=== PATIENT | male | born 1940 | race Caucasian/White ===

== ENCOUNTER 2017-05-21 00:05 | Day surgery (SDC) | payer MEDICARE, OTHER ==
[~2017-05-21] VITALS: Ht 180.3 cm; Wt 80.3 kg
[~2017-05-21 00:05] MED LIST: ACET-1966 PO; ASPI-1471 PO; BENZ200C15 PO; CELE-1 PO; CHOL400C10 PO; CHOL500045 PO; CYCL10TA29 PO; DIPH0.5D12 IM; IBUP-56 PO; LEVO-3 PO; LUTE20CA11 PO; LUTE40CA PO; MAGN250T34 PO; METH4TAB66 PO; NAPR-724 PO; OMEG-11 PO; OMEP10CA40 PO; PNEU0.5D3 IM; POLY10DR22 OP; POLY17PO25 PO; ROBC PO; SIMV-54 PO; ZINC50TA2 PO
[2017-05-21] MEDS ORDERED: ROPIVACAINE 0.2% 20 ML VIAL ONE (06:40)
[2017-05-21 07:40] LABS: PLATELET COUNT, AUTOMATED 174 K/uL (150-450)
[2017-05-21] MEDS ORDERED: NORMOSOL R SOLN(*) 1000 ML BAG 1,000 ML IV PRN (07:55)
[2017-05-21] MEDS ORDERED: FAMOTIDINE 20 MG TAB PO ONE (07:55)
[2017-05-21] MEDS ORDERED: LIDOCAINE/SOD BICARB 8.4% SYR ID ONE (07:55)
[2017-05-21] MEDS ORDERED: MIDAZOLAM 2 MG/2 ML VIAL IVP PRN (07:55)
[2017-05-21] MEDS ORDERED: ceFAZolin(*) 2GM/D5W 50ML 50 ML IVPB ONE (07:55)
[2017-05-21 07:56] VITALS: BP 146/77
[2017-05-21] MEDS ORDERED: LIDOCAINE MPF 1% 5 ML VIAL ONE ×2 (08:53→09:05)
[2017-05-21] MEDS ORDERED: PROPOFOL EMUL(*) 10MG/ML 20 ML 40 ML ONE (08:53)
[2017-05-21] MEDS ORDERED: SUCCINYLCHOL CHL 100MG/5ML SYR IVP ONE (09:00)
[2017-05-21] MEDS ORDERED: DEXAMETHASONE SOD PHOS 10MG/ML ONE (09:05)
[2017-05-21] MEDS ORDERED: KETOROLAC 30 MG/ML VIAL ONE (09:05)
[2017-05-21] MEDS ORDERED: ONDANSETRON 4 MG/2 ML VIAL ONE (09:05)
--- NOTE | 2017-05-21 09:58 | Post Operative Progress Note ---
Post Operative Progress Note Date: May 21, 2017 Time: 09:57 Surgeon: george Anesthesia: dr oglesby Pre-Op Diagnosis: right inguinal herinia Post-Op Diagnosis: direct Procedure(s): right inguinal hernia repair. MARIEL Rosales MD May 21, 2017 09:58
[2017-05-21] MEDS ORDERED: HYDR-4309 PO (09:59)
--- NOTE | 2017-05-21 10:00 | Short(Outpt) Discharge Summary ---
Discharge Summary Reason for Hosp/Final Diag: (1) Right inguinal hernia Hospital Course & Plan: right inguina hernia repair Departure Discharge to: Home Discharge Instructions Home Meds Active Scripts Hydrocodone Bit/Acetaminophen (NORCO 5-325 TABLET) 1 Each Tablet, 1 EACH PO Q4H Y for PAIN, #30 TAB Prov:MARIEL PLEITEZ MD 05/21/17 Simvastatin (SIMVASTATIN) 40 Mg Tablet, 1 TAB PO DAILY, #90 TAB 4 Refills Prov:DAVE BELLAMY MD 07/10/16 Omeprazole (OMEPRAZOLE) 10 Mg Capsule.dr, 1 TAB PO QDAY, #90 CAP 4 Refills Prov:DAVE BELLAMY MD 07/10/16 Levothyroxine Sodium (LEVOTHYROXINE SODIUM) 100 Mcg Tablet, 1 TAB PO QDAY, #90 TAB 4 Refills Prov:DAVE BELLAMY MD 07/10/16 Reported Medications Polyethylene Glycol 3350 (MIRALAX) 17 Gm Powd.pack, 17 GM PO PRN Y for CONSTIPATION, PKT 05/14/17 Cholecalciferol (Vitamin D3) (VITAMIN D) 400 Unit Capsule, 400 UNIT PO QDAY, CAPSULE 05/14/17 Lutein (LUTEIN) 40 Mg Capsule, 40 MG PO QDAY, CAPSULE 05/14/17 Magnesium Oxide (MAGNESIUM) 250 Mg Tablet, 1 TAB PO QDAY 07/10/16 Discontinued Reported Medications Cholecalciferol (Vitamin D3) (VITAMIN D) 5,000 Unit Tablet, 1 TAB PO QDAY, CAPSULE 07/10/16 Lutein (LUTEIN) 20 Mg Capsule, 1 CAP PO DAILY, CAPSULE 05/28/14 Diet: Regular Activity: No Heavy Lifting Special Instructions: ice to incsion for 48 hours remove bandage and shower to see me in one week, calll [phone] for apt ibuprofen prn MARIEL PLEITEZ MD May 21, 2017 10:00
[2017-05-21] MEDS ORDERED: APAP/HYDROCODONE 325/5 TAB ONE (10:22)
[2017-05-21 10:30] VITALS: BP 132/83
[2017-05-21 10:34] VITALS: BP 127/82
[2017-05-21 10:35] VITALS: BP 129/77
--- NOTE | 2017-05-21 15:33 | OPERATIVE REPORT 1 ---
EVENT DATE: May 21, 2017 SURGEON: Slava Barboza MD ANESTHESIOLOGIST: Raul Pena MD ANESTHESIA: General. PREOPERATIVE DIAGNOSIS Right inguinal hernia. POSTOPERATIVE DIAGNOSIS Right direct inguinal hernia. PROCEDURE PERFORMED Right inguinal hernia repair, Kugel technique. DESCRIPTION OF PROCEDURE The patient was placed in the supine position and given general anesthetic. His right lower abdomen and genitalia were prepped and draped in a sterile fashion. We placed the patient in slight Trendelenburg. An incision was made half way between the anterior superior iliac spine and the pubic tubercle, 1 cm above this. It was carried down through the skin and subcutaneous tissue, exposing the external oblique. We opened it in the direction of its fibers, spread the internal oblique, exposed the transversalis fascia which was incised vertically. We lifted the inferior epigastric vessels and dissected in the preperitoneal space. We exposed the pubic tubercle and Tmi ligament. He had a large direct inguinal hernia. Cord structures were dissected out. There was no indirect inguinal hernia. The peritoneum was off the cord structures back past where the vas deferens and the vessels bifurcated. When we put tension on the testicle, there was no tension on the peritoneum. We then placed a medium Kugel patch into position, covered the pubic tubercle, Tim ligament, and extended past the internal ring. The transversalis fascia was reapproximated with one stitch of 3-0 Vicryl. The internal oblique was closed with running 3-0 Vicryl. The external oblique was closed with running 3- 0 Vicryl. We placed 0.2% ropivacaine in the muscle and subcutaneous tissue. The subcutaneous tissue was reapproximated with 4-0 Maxon. The skin was closed with interrupted 4-0 Maxon. Steri-Strips and an Airstrip were placed. The patient tolerated the procedure well with no apparent complications. [facility]ENTERShav[facility]
== END 2017-05-21 10:30 | disposition home or self-care (01) ==
LOC: OR 00:05
PROVIDERS: ATTEND Surgery
DX: K40.90 Unilateral inguinal hernia, without obstruction or gangrene, not specified as recurrent (principal)
CPT/HCPCS: 36415; 49505; 85025; A9270; J0330; J1100; J1885; J2001; J2405; J2704; J2795; C1781; J0690; J7030

== ENCOUNTER → 2018-08-06 | Outpatient (CLI) | payer MEDICARE, OTHER ==
[~2018-08-06] MED LIST changes: +ALBU2.5V36 INH; +ALBU8.5H IH; +AZIT-1 PO; +CHOL200018 PO; -DIPH0.5D12 IM; +DIPH0.5S2 IM; +FLU180SY11 IM; +FLUT16SP19 NS; +HYDR-653 PO; -NAPR-724 PO; +NAPR500T31 PO; +PRED-1 PO
--- NOTE | 2018-08-06 09:43 | RADIOLOGY IMAGING REPORT ---
FACILITY: [facility] PATIENT NAME: Joesph Valdes : 1940 MR: [id number] V: [id number] EXAM DATE: ORDERING PHYSICIAN: RAI KIRK TECHNOLOGIST: Location: [facility] Patient: Joesph Valdes : 1940 Visit/Account:[id number] Date of Sevice: 08/06/2018 CHEST PA LAT INDICATION: Cough x3 weeks COMPARISON: None available FINDINGS: Heart size within normal limits. There is no focal infiltrate or lobar consolidation. There is no pneumothorax or pleural effusion. IMPRESSION: 1. No acute cardiopulmonary process. Report Dictated By: Vinod Gonzalez at 08/06/2018 9:38 AM Report E-Signed By: Vinod Gonzalez at 08/06/2018 9:39 AM WSN:[id number]
== END ==
LOC: RAD 08:52
PROVIDERS: ATTEND Nurse Practitioner Primary Care
DX: R05 Cough (principal)
CPT/HCPCS: 71046